=== PATIENT | male | born 1995 | race Caucasian/White ===

== ENCOUNTER 2020-01-15 20:33 | Emergency (ER) | payer OTHER ==
[~2020-01-15] VITALS: Ht 188 cm; Wt 88.5 kg
== END 2020-01-15 22:32 | disposition home or self-care (01) ==
LOC: ER 20:33
DX: T40.8X1A Poisoning by lysergide [LSD], accidental (unintentional), initial encounter (principal)
CPT/HCPCS: 96361; 96374; 99283-25; J2060; J7030